=== PATIENT | male | born 1990 | race Caucasian/White ===

== ENCOUNTER 2017-11-24 11:02 | Emergency (ER) | payer OTHER ==
[2017-11-24 11:18] VITALS: BP 148/95
--- NOTE | 2017-11-24 12:52 | UC ---
Cardiac HPI - HPI Summary HPI Summary: PATIENT PRESENTS WITH 2 DAYS OF OVERALL MALAISE. HAS HAD NAUSEA, CHILLS, ACHINESS, HEADACHE, DIZZINESS AND SUBJECTIVE FEVER. YESTERDAY HE THOUGHT HE WAS FEELING A LITTLE BIT BETTER SO TRIED TO EAT A LITTLE SOMETHING AND THEN DEVELOPED WHAT HE DESCRIBES SEVERE HEARTBURN. PATIENT WILL AT BASELINE OCCASIONALLY HAVE SOME MILD HEARTBURN THAT RESOLVES WITH ONE TUMS. PATIENT TOOK TUMS MULTIPLE TIMES OVER THE COURSE OF A FEW HOURS LAST NIGHT WITH NO IMPROVEMENT IN HIS SYMPTOMS. TODAY HE STILL HAS SOME EPIGASTRIC MIDSTERNAL BURNING/TIGHTNESS AND PERSISTENT NAUSEA. YESTERDAY HE HAD SOME SHORTNESS OF BREATH. - History of Current Complaint Chief Complaint: UCGeneralIllness Stated Complaint: HEADACHE,LIGHTHEADED,HEARTBURN Time Seen by Provider: 11/24/17 12:21 Hx Obtained From: Patient, Family/Purification Supervisor - Onset/Duration: Gradual Onset, Lasting Days, Still Present Timing: Constant Initial Severity: Moderate Current Severity: Moderate Pain Intensity: 5 Character: Tightness, Burning Aggravating Factor(s): Nothing Alleviating Factor(s): Nothing Associated Signs & Symptoms: Positive: Chest Pain, Dizziness, SOB, Nausea/ Vomiting - Allergy/Home Medications Allergies/Adverse Reactions: Allergies Allergy/AdvReac Type Severity Reaction Status Date / Time No Known Allergies Allergy Verified 11/24/17 11:14 Home Medications: Home Medications Calcium Carbonate CHEW TAB* [Tums*] 1 tab PO Q6HR PRN 11/24/17 [History Confirmed 11/24/17] PMH/Surg Hx/FS Hx/Imm Hx Endocrine History: Dyslipidemia - Surgical History Surgical History: None Surgery Procedure, Year, and Place: NONE PERTINENT - Family History Known Family History: Positive: Cardiac Disease, Hypertension - Social History Alcohol Use: Weekly Alcohol Amount: 1-2 drinks weekly Substance Use Type: None Smoking Status (MU): Never Smoked Tobacco Review of Systems Constitutional: Fever, Chills, Fatigue Respiratory: Shortness Of Breath Cardiovascular: Chest Pain Gastrointestinal: Vomiting, Nausea All Other Systems Reviewed And Are Negative: Yes Physical Exam Triage Information Reviewed: Yes Appearance: No Pain Distress, Well-Nourished, Ill-Appearing - MILD, LOOKS PALE Vital Signs: Initial Vital Signs Temp 97.9 F 11/24/17 11:15 Pulse 81 11/24/17 11:15 Resp 16 11/24/17 11:15 BP 148/95 04/24/18 11:15 Pulse Ox 99 11/24/17 11:15 Vital Signs Reviewed: Yes Eyes: Positive: Conjunctiva Clear ENT: Positive: Hearing grossly normal Neck: Positive: Supple, Nontender, No Lymphadenopathy Respiratory Exam: Normal Cardiovascular Exam: Normal Abdomen Description: Positive: Nontender, Soft Musculoskeletal: Positive: No Edema Neurological: Positive: Alert Psychological: Positive: Normal Response To Family, Age Appropriate Behavior Skin: Negative: rashes Diagnostics - Laboratory Diagnostic Studies Completed/Ordered: FLU NEG - EKG Cardiac Rate: NL - 72BPM Cardiac Rhythm: Sinus: Normal Ectopy: None ST Segment: Normal - Assessment/Plan Course Of Treatment: TO [facility] [place] ED BY PRIVATE CAR - Clinical Impression Provider Diagnoses: CHEST PAIN, NOS Discharge - Sign-Out/Discharge Documenting (check all that apply): Discharge/Admit/Transfer - Discharge Plan Condition: Stable Disposition: HOME Patient Education Materials: Chest Pain (ED) Referrals: No Primary Care Phys,NOPCP [Primary Care Provider] - Additional Instructions: GIVEN YOUR PRESENTATION, TRANSFER TO THE [facility] – [place] [place] ED FOR FURTHER EVALUATION IS WARRANTED. GO DIRECTLY THERE FROM HERE. - Billing Disposition and Condition Condition: STABLE Disposition: HOME
== END 2017-11-24 13:06 | disposition home or self-care (01) ==
LOC: UCEAST 11:02
DX: R07.9 Chest pain, unspecified (principal)
CPT/HCPCS: 87502; 93005; 99202; G0463

== ENCOUNTER 2017-11-24 13:31 | Emergency (ER) | payer OTHER ==
[2017-11-24] MEDS ORDERED: Al Hydrox/Mg Hydrox/Simet LIQ* 30 ML UDC PO ONE (14:12)
[2017-11-24] MEDS ORDERED: Famotidine IV* 10 MG/ML 2 ML (20 mg) IV ONE (14:12)
[2017-11-24] MEDS ORDERED: NS 0.9% 1000 ML* 1,000 ML IV ONE (14:12)
[2017-11-24] MEDS ORDERED: Ondansetron INJ* 2 MG/ML VIAL IV ONE (14:14)
[2017-11-24 14:38] LABS: ABS Basophils 0 10^3/ul (0-0.2); ABS Eosinophils 0.2 10^3/ul (0-0.6); ABS Lymphocytes 2.4 10^3/ul (1.0-4.8); ABS Monocytes 1.3 10^3/ul (0-0.8); ABS Neutrophils 6.9 10^3/ul (1.5-7.7); ABS Nucleated RBC 0 10^3/ul; Eosinophil % 1.4 % (0-6); Hematocrit 46 % (42-52); Hemoglobin 15.7 g/dl (14.0-18.0); Lymphocyte % 21.9 % (25-47); Mean Corpuscular HGB Conc 34 g/dl (31-36); Mean Corpuscular Hemoglobin 30 pg (27-31); Mean Corpuscular Volume 86 fL (80-94); Nucleated Red Blood Cells % 0; Platelet Count 295 10^3/ul (150-450); Red Blood Count 5.32 10^6/ul (4.0-5.4); Red Cell Distribution Width 13 % (10.5-15); White Blood Count 10.8 10^3/ul (3.5-10.8)
[2017-11-24] MEDS ORDERED: Ondansetron ODT TAB* 4 MG SL ONE (14:44)
[2017-11-24] MEDS ORDERED: Ondansetron ODT TAB* 4 MG ONE (14:45)
[2017-11-24 14:56] LABS: EGFR Non-African American 67.4 (>60)
[2017-11-24 15:15] LABS: Urine Appearance Clear; Urine Blood 1+ (Negative); Urine Color Yellow; Urine Ketones Negative (Negative); Urine Protein Negative (Negative); Urine Specific Gravity 1.031 (1.010-1.030); Urine Urobilinogen Negative (Negative)
[2017-11-24 15:23] VITALS: BP 130/72
--- NOTE | 2017-12-03 05:53 | ED ---
Nausea/Vomiting/Diarrhea HPI - HPI Summary HPI Summary: Patient is an otherwise healthy 27-year-old male who presents to the ED with chief complaint of epigastric pain which has been present 3 days. He was sent here from urgent care for further evaluation of his symptoms. Denies any chest pain. Patient endorses nausea and vomiting which ceased yesterday. Denies any diarrhea or constipation. Symptoms are worse with lying flat and better with sitting upright. He states he had some food poisoning 3 days ago and has been having nausea and vomiting 2 days. Symptoms began after the nausea and vomiting. He endorses a burning-like sensation. Endorses a family history of cardiac issues including CAD and hypertension. Denies any personal cardiac issues. He states symptoms improved drastically with Tums and are worsened with eating. Denies any abdominal pain otherwise. Denies any fevers, sweats, chills. He has been otherwise feeling well. Patient is a nonsmoker and denies taking any NSAIDs recently. - History of Current Complaint Chief Complaint: EDNauseaVomitDiarrh Stated Complaint: N/V THURSDAY- TRANSFER Time Seen by Provider: 11/24/17 14:08 Hx Obtained From: Patient Onset/Duration: Sudden Onset Timing: Constant Severity Initially: Mild Severity Currently: Mild Pain Intensity: 0 Pain Scale Used: 0-10 Numeric Location: Epigastric Character: Burning Aggravating Factor(s): Food Alleviating Factor(s): Position Nausea/Vomiting Presence: Nauseated Vomiting Frequency: Every 3-4 hours Nausea/Vomiting Duration: 12-24 hours Vomiting Characteristics: Nonbilious Diarrhea Presence: No - Risk Factors Influenza Risk Factors: Negative Surgical Obstruction Risk Factor(s): Negative - Allergies/Home Medications Allergies/Adverse Reactions: Allergies Allergy/AdvReac Type Severity Reaction Status Date / Time No Known Allergies Allergy Verified 11/24/17 13:38 PMH/Surg Hx/FS Hx/Imm Hx Previously Healthy: Yes Endocrine/Hematology History: Denies: Hx Diabetes Cardiovascular History: Denies: Hx Congestive Heart Failure, Other Cardiovascular Problems/Disorders - DENIES Respiratory History: Denies: Other Respiratory Problems/Disorders - DENIES History: Denies: Hx Renal Disease - Surgical History Surgery Procedure, Year, and Place: NONE PERTINENT - Immunization History Hx Pertussis Vaccination: No Immunizations Up to Date: Unable to Obtain/Confirm Infectious Disease History: No Infectious Disease History: Denies: Traveled Outside the [place] in Last 30 Days - Family History Known Family History: Positive: Cardiac Disease, Hypertension - Social History Occupation: Employed Full-time Lives: With Family Alcohol Use: Weekly Alcohol Amount: 1-2 drinks weekly Hx Substance Use: No Substance Use Type: Reports: None Hx Tobacco Use: No Smoking Status (MU): Never Smoked Tobacco Review of Systems Constitutional: Negative Negative: Fever, Chills, Fatigue, Skin Diaphoresis Eyes: Negative Cardiovascular: Negative Respiratory: Negative Positive: Abdominal Pain - epigastric Genitourinary: Negative Positive: no symptoms reported, see HPI Musculoskeletal: Negative Neurological: Negative Psychological: Normal All Other Systems Reviewed And Are Negative: Yes Physical Exam Triage Information Reviewed: Yes Vital Signs On Initial Exam: Initial Vitals Temp Pulse Resp BP Pulse Ox 98.5 F 73 16 148/76 97 11/24/17 13:33 11/24/17 13:33 11/24/17 13:33 11/24/17 13:33 11/24/17 13:33 Vital Signs Reviewed: Yes Appearance: Positive: Well-Appearing, Well-Nourished Skin: Positive: Warm, Skin Color Reflects Adequate Perfusion Head/Face: Positive: Normal Head/Face Inspection Eyes: Positive: EOMI, LATONYA, Conjunctiva Clear Neck: Positive: Supple Respiratory/Lung Sounds: Positive: Clear to Auscultation, Breath Sounds Present Cardiovascular: Positive: Normal, RRR, Pulses are Symmetrical in both Upper and Lower Extremities Abdomen Description: Positive: Soft, Other: - pain to deep palpation of the epigastric region with no pain to the other quadrants Neurological: Positive: Normal, Sensory/Motor Intact, Alert, Oriented to Person Place, Time Psychiatric: Positive: Normal, Affect/Mood Appropriate AVPU Assessment: Alert Diagnostics - Vital Signs Vital Signs Temp Pulse Resp BP Pulse Ox 11/24/17 15:27 97.8 F 80 16 130/72 99 11/24/17 15:16 73 130/72 11/24/17 15:00 74 95 11/24/17 14:44 80 116/92 96 11/24/17 14:14 80 119/74 96 11/24/17 14:12 83 11/24/17 13:33 98.5 F 73 16 148/76 97 - Laboratory Lab Results: Lab Results 11/24/17 11/24/17 11/24/17 Range/Units 14:25 14:25 14:41 WBC 10.8 (3.5-10.8) 10^3/ul RBC 5.32 (4.0-5.4) 10^6/ul Hgb 15.7 (14.0-18.0) g/dl Hct 46 (42-52) % MCV 86 (80-94) fL MCH 30 (27-31) pg MCHC 34 (31-36) g/dl RDW 13 (10.5-15) % Plt Count 295 (150-450) 10^3/ul MPV 8.0 (7.4-10.4) um3 Neut % (Auto) 63.9 (38-83) % Lymph % (Auto) 21.9 L (25-47) % Nolan % (Auto) 12.4 H (0-7) % Eos % (Auto) 1.4 (0-6) % Baso % (Auto) 0.4 (0-2) % Absolute Neuts (auto) 6.9 (1.5-7.7) 10^3/ul Absolute Lymphs (auto) 2.4 (1.0-4.8) 10^3/ul Absolute Monos (auto) 1.3 H (0-0.8) 10^3/ul Absolute Eos (auto) 0.2 (0-0.6) 10^3/ul Absolute Basos (auto) 0 (0-0.2) 10^3/ul Absolute Nucleated RBC 0 10^3/ul Nucleated RBC % 0 Sodium 138 L (139-145) mmol/L Potassium TNP Chloride 104 (101-111) mmol/L Carbon Dioxide 25 (22-32) mmol/L Anion Gap 9 (2-11) mmol/L BUN 15 (6-24) mg/dL Creatinine 1.28 H (0.67-1.17) mg/dL Est GFR ( Amer) 86.7 (>60) Est GFR (Non-Af Amer) 67.4 (>60) BUN/Creatinine Ratio 11.7 (8-20) Glucose 87 (70-100) mg/dL Calcium 9.5 (8.6-10.3) mg/dL Magnesium TNP Total Bilirubin 0.50 (0.2-1.0) mg/dL AST TNP ALT 59 H (7-52) U/L Alkaline Phosphatase 54 (34-104) U/L Total Protein 7.9 (6.4-8.9) g/dL Albumin 4.2 (3.2-5.2) g/dL Globulin 3.7 (2-4) g/dL Albumin/Globulin Ratio 1.1 (1-3) Lipase 33 (11.0-82.0) U/L Urine Color Yellow Urine Appearance Clear Urine pH 5.0 (5-9) Ur Specific [place] 1.031 H (1.010-1.030) Urine Protein Negative (Negative) Urine Ketones Negative (Negative) Urine Blood 1+ A (Negative) Urine Nitrate Negative (Negative) Urine Bilirubin Negative (Negative) Urine Urobilinogen Negative (Negative) Ur Leukocyte Esterase Negative (Negative) Urine WBC (Auto) Trace(0-5/hpf) (Absent) Urine RBC (Auto) 2+(6-10/hpf) A (Absent) Urine Bacteria Absent (Absent) Hyaline Casts Present A (Absent) Urine Glucose Negative (Negative) Result Diagrams: 11/24/17 14:25 11/24/17 14:25 Lab Statement: Any lab studies that have been ordered have been reviewed, and results considered in the medical decision making process. Naus/Vom/Diarrhea Course/Dx - Course Course Of Treatment: During the course of treatment, the patient is evaluated for epigastric pain. On arrival he states he is feeling well but endorses pain with eating and lying flat. The pain is discretely located to the epigastric region with no radiation. Denies any chest pain or shortness of breath. Denies any diaphoresis. Denies any fevers or chills. He states he believes this is epigastric pain due to his bouts of nausea and vomiting a few days ago from food poisoning. I have offered an IV and he declines at this time. I given him Zofran and Maalox with full symptoms relief. He is strictly encouraged to return for any chest pain, shortness of breath or any worsening symptoms. I have given him prescriptions for omeprazole and Zofran and he is encouraged Maalox at home for any breakthrough epigastric pain. - Differential Dx/Diagnosis Provider Diagnoses: Epigastric pain Condition At Discharge: Stable Discharge - Sign-Out/Discharge Documenting (check all that apply): Discharge/Admit/Transfer - Discharge Plan Condition: Stable Disposition: HOME Prescriptions: Omeprazole 40 mg PO DAILY #30 capsule. Ondansetron ODT TAB* [Zofran 4 MG Odt TAB*] 4 mg PO Q6H PRN #12 tab.odt MDD 4 PRN Reason: Nausea Patient Education Materials: Gastritis (DC), Diet for Stomach Ulcers and Gastritis (ED), Epigastric Pain (ED) Forms: *Work Release Referrals: Amilcar Aguilar MD [Primary Care Provider] - Additional Instructions: Omeprazole 40 mg tabs once daily in the morning 30 days Zofran up to 4 times daily as needed for nausea/vomiting Maalox, this is [id number] for any breakthrough epigastric symptoms For any worsening or changing symptoms, return to the ED immediately - Billing Disposition and Condition Condition: STABLE Disposition: HOME
== END 2017-11-24 15:27 | disposition home or self-care (01) ==
LOC: ED 13:31
DX: R10.13 Epigastric pain (principal)
CPT/HCPCS: 36415; 80053; 81003; 81015; 83690; 85025; 87086; 96374; 96375; 99282; A9270-GY

== ENCOUNTER 2018-06-12 13:48 | Emergency (ER) | payer OTHER ==
--- OUTSIDE RECORDS SUMMARY | 2018-06-12 13:54 | XMS REPORT ---
:1990 External Reference #:[id number] Author Organization [facility] Address [address] [place] [address] Phone [phone] Care Team Providers Name Role Phone Cuong Clemente MD Care Team Information Rn Private Duty Unavailable Cuong Clemente MD Primary Care Physician Unavailable Payers Type Date Identification Numbers Payment Provider Subscriber Commercial Policy Number: [id number] Skyler Reema Umaña PayID: [id number] [address] [place] [address] Problems Date Description Provider Status Onset: 03/07/2013 Mild major depression, single episode Mike Beard M.D. Active Onset: 09/15/2011 Acute upper respiratory infection Dejan Callahan M.D. 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 [place] Cigarette Use Former Cigarette Smoker quit 2011 ETOH Use Some not daily - in social situations 1-3 beers per week Recreational Drug Use Denies Drug Use Smoking Patient is a former smoker Daily Caffeine Consumes on average 1 cup of coffee per day Daily Caffeine Consumes on average 1 soda per day Currently Active The patient is currently sexually active Allergies, Adverse Reactions, Alerts Date Description Reaction Status Severity Comments 03/11/2010 NKDA active Medications Medication Date Status Form Strength Qnty SIG Indications Ordering Provider No Active Active Unknown Medications 018 No Active Hx Unknown Medications 013 - 013 Escitalopram Hx Tablets 10mg 30tabs 1/2 po qd Mike F. Oxalate 013 - [facility] ,then to M.D. 014 increase to 1 po qd Escitalopram Hx Tablets 10mg 30tabs 1 po qd Mike F. Oxalate 013 - [facility], M.DTami 018 Amoxicillin/Cla Hx Tablets 500-125mg 20tabs 1 po bid 465.9 Wylie ATami vulanate 012 - [place], Potassium M.Alvino 012 Clarinex Hx Tablets 5mg 30tabs 1 po qd Dejan Isaac 011 - [place], M.Alvino 012 Work Note Hx may return Amilcar Reese - to work Lauren, today Bubba 012 Risperidone 0000/0 Hx Tablets 1mg 1 po qhs Unknown 000 - 011 Zoloft /0 Hx Tablets 50mg 30tabs 1 po qd Amilcar Isaac 000 - [place], M.Alvino 013 Vicodin 00/0 Hx Tablets 5-500mg 40tabs 2 po every Unknown 000 - six hours prn 011 Augmentin 0000/0 Hx Tablets 20tabs one tab po Unknown 000 - bid 011 Septra DS /0 Hx Tablets 800-160mg 20tabs 1 po bid Unknown 000 - 018 Medications Administered in Office Medication Date Status Form Strength Qnty SIG Indications Ordering Provider Influenza Virus Administered Injection Ann Michelle Vaccine, 018 Shane, Recombinant JAVA SDET Dna, Hemagglutnin Protein On Immunizations CPT Code Status Date Vaccine Reaction Lot # [id number] Given 05/09/2008 Influenza Virus Vaccine, Live For Intranasla Use 29509 Given 05/01/2008 Hep A Ped 2-Dose Immunization 17539 Given 05/31/2007 Influenza Virus Vaccine, Live For Intranasla Use 76818 Given 06/05/2006 Influenza Virus Vaccine, Live For Intranasla Use 31617 Given 12/31/2004 Meningococcal Conjugate Vaccine,Serogroups For Intramuscular Use 26176 Given 12/31/2004 Tdap Tetanus, W Pertussis 62658 Given 03/15/1999 Hepatitis B Immunization, [place]-19 Years 71262 Given 03/29/1998 Hepatitis B Immunization, -19 Years 09767 Given 03/10/1997 Hepatitis B Immunization, [place]-19 Years 52215 Given 02/15/1996 (IPV) Inactive Poliovirus Vaccine 11382 Given 02/15/1996 MMR Virus Immunization 55653 Given 02/15/1996 DTaP Immunization 54673 Given 06/03/1992 Varicella (Chicken Pox) Immunization had disease 06814 Given 04/19/1992 (IPV) Inactive Poliovirus Vaccine [id number] 97239 Given 01/18/1992 MMR Virus Immunization 67047 Given 01/18/1992 Hib PRP-T Conjugate 4 Dose Schedule 24514 Given 03/28/1991 DTaP Immunization 39375 Given 03/28/1991 Hib PRP-T Conjugate 4 Dose Schedule 66089 Given 01/19/1991 (IPV) Inactive Poliovirus Vaccine 15239 Given 01/19/1991 Hib PRP-T Conjugate 4 Dose Schedule 82818 Given 01/16/1991 DTaP Immunization 87291 Given 1990 Hib PRP-T Conjugate 4 Dose Schedule 42488 Given 1990 (IPV) Inactive Poliovirus Vaccine 23493 Given 1990 DTaP Immunization Vital Signs Date Vital Result Comment 06/01/2018 BP Systolic 120 mmHg BP Diastolic 80 mmHg Heart Rate 72 /min Body Temperature 98.4 F Respiratory Rate 16 /min Height 72 inches 6'0" Weight 288.00 lb BMI (Body Mass Index) 39.1 kg/m2 04/09/2013 BP Systolic 120 mmHg BP Diastolic 70 mmHg Heart Rate 80 /min Body Temperature 98.1 F Respiratory Rate 16 /min Height 72 inches 6'0" Weight 252.00 lb BMI (Body Mass Index) 34.2 kg/m2 03/21/2013 BP Systolic 110 mmHg BP Diastolic 74 mmHg Heart Rate 60 /min Body Temperature 97.8 F Respiratory Rate 14 /min Height 72 inches 6'0" Weight 255.00 lb BMI (Body Mass Index) 34.6 kg/m2 03/07/2013 BP Systolic 126 mmHg BP Diastolic 92 mmHg Heart Rate 72 /min Body Temperature 97.3 F Respiratory Rate 16 /min Height 72 inches 6'0" Weight 265.00 lb BMI (Body Mass Index) 35.9 kg/m2 07/22/2012 BP Systolic 130 mmHg BP Diastolic 84 mmHg Heart Rate 84 /min Body Temperature 98.2 F Respiratory Rate 16 /min Height 72 inches 6'0" Weight 273.00 lb BMI (Body Mass Index) 37.0 kg/m2 11/07/2011 BP Systolic 110 mmHg BP Diastolic 60 mmHg Heart Rate 80 /min Body Temperature 98.9 F Height 71.75 inches 5'11.75" Weight 268.00 lb BMI (Body Mass Index) 36.6 kg/m2 09/15/2011 BP Systolic 114 mmHg BP Diastolic 84 mmHg Heart Rate 71 /min Body Temperature 98.2 F Height 71.75 inches 5'11.75" Weight 263.00 lb BMI (Body Mass Index) 35.9 kg/m2 06/02/2011 BP Systolic 130 mmHg BP Diastolic 90 mmHg Heart Rate 78 /min Body Temperature 97.5 F Height 71.75 inches 5'11.75" Weight 264.00 lb BMI (Body Mass Index) 36.1 kg/m2 01/10/2011 BP Systolic 120 mmHg BP Diastolic 72 mmHg Heart Rate 80 /min Body Temperature 97.2 F Respiratory Rate 16 /min Height 71.75 inches 5'11.75" Weight 254.00 lb BMI (Body Mass Index) 34.7 kg/m2 01/07/2011 BP Systolic 120 mmHg BP Diastolic 80 mmHg Heart Rate 68 /min Body Temperature 98.2 F Height 71.75 inches 5'11.75" Weight 247.00 lb BMI (Body Mass Index) 33.7 kg/m2 10/28/2010 BP Systolic 130 mmHg BP Diastolic 82 mmHg Heart Rate 76 /min Body Temperature 98.1 F Respiratory Rate 16 /min Height 71.75 inches 5'11.75" Weight 236.00 lb BMI (Body Mass Index) 32.2 kg/m2 10/07/2010 BP Systolic 130 mmHg BP Diastolic 70 mmHg Heart Rate 84 /min Body Temperature 98.6 F Respiratory Rate 12 /min Height 71.75 inches 5'11.75" Weight 228.00 lb BMI (Body Mass Index) 31.1 kg/m2 03/11/2010 BP Systolic 120 mmHg BP Diastolic 70 mmHg Heart Rate 76 /min Body Temperature 98.0 F Respiratory Rate 16 /min Height 71.75 inches 5'11.75" Weight 230.00 lb BMI (Body Mass Index) 31.4 kg/m2 Results Test Date Test Result H/L Range Note Urinalysis Profile 11/24/2017 Urine Color Yellow Urine Appearance Clear Urine Specific [place] 1.031 High 1.010-1.030 Urine pH 5.0 5-9 Urine Urobilinogen Negative Negative Urine Ketones Negative Negative Urine Protein Negative Negative Urine Leukocytes Negative Negative Urine Blood 1+ Negative Urine Nitrite Negative Negative Urine Bilirubin Negative Negative Urine Glucose Negative Negative Urine White Blood Cell Trace(0-5/hpf) Absent Urine Red Blood Cell 2+(6-10/hpf) Absent Urine Bacteria Absent Absent Urine Hyaline Casts Present Absent Urine Culture And 11/24/2017 Urine Culture SEE RESULT BELOW 1 Sensitivities CBC Auto Diff 11/24/2017 White Blood Count 10.8 10^3/uL 3.5-10.8 Red Blood Count 5.32 10^6/uL 4.0-5.4 Hemoglobin 15.7 g/dL 14.0-18.0 Hematocrit 46 % 42-52 Mean Corpuscular Volume 86 fL 80-94 Mean Corpuscular Hemoglobin 30 pg 27-31 Mean Corpuscular HGB Conc 34 g/dL 31-36 Red Cell Distribution Width 13 % 10.5-15 Platelet Count 295 10^3/uL 150-450 Mean Platelet Volume 8.0 um3 7.4-10.4 Abs Neutrophils 6.9 10^3/uL 1.5-7.7 Abs Lymphocytes 2.4 10^3/uL 1.0-4.8 Abs Monocytes 1.3 10^3/uL High 0-0.8 Abs Eosinophils 0.2 10^3/uL 0-0.6 Abs Basophils 0 10^3/uL 0-0.2 Abs Nucleated RBC 0 10^3/uL Granulocyte % 63.9 % 38-83 Lymphocyte % 21.9 % Low 25-47 Monocyte % 12.4 % High 0-7 Eosinophil % 1.4 % 0-6 Basophil % 0.4 % 0-2 Nucleated Red Blood Cells % 0 Comp Metabolic Panel 11/24/2017 Sodium 138 mmol/L Low 139-145 Chloride 104 mmol/L 101-111 Co2 Carbon Dioxide 25 mmol/L 22-32 Glucose 87 mg/dL 70-100 Blood Urea Nitrogen 15 mg/dL 6-24 Creatinine 1.28 mg/dL High 0.67-1.17 BUN/Creatinine Ratio 11.7 8-20 Calcium 9.5 mg/dL 8.6-10.3 Total Protein 7.9 g/dL 6.4-8.9 Albumin 4.2 g/dL 3.2-5.2 Globulin 3.7 g/dL 2-4 Albumin/Globulin Ratio 1.1 1-3 Total Bilirubin 0.50 mg/dL 0.2-1.0 Alkaline Phosphatase 54 U/L 34-104 Alt 59 U/L High 7-52 Egfr Non- 67.4 >60 Egfr 86.7 >60 2 Potassium TNP mmol/L 3.5-5.0 3 Anion Gap 9 mmol/L 2-11 Ast TNP U/L 13-39 4 Laboratory test finding 11/24/2017 Lipase 33 U/L 11.0-82.0 Magnesium TNP mg/dL 1.9-2.7 5 Lipid Profile 03/21/2013 Cholesterol 185 mg/dL 120-200 HDL 28 mg/dL Low 30-70 6 Triglycerides 94 mg/dL 30-200 HDL Risk Factor 6.6 CALC High 0.0-4.4 LDL (Calculated) 138 CALC High 0-129 VLDL (Calculated) 19 mg/dL 0-50 Urinalysis 03/03/2013 Urine Color Yellow Urine Appearance Clear Urine Specific [place] 1.031 High 1.010-1.030 Urine Esterase Negative Negative Urine Nitrate Negative Negative Urine Urobilinogen Negative E.U./dL Negative Urine Protein Negative mg/dL Negative Urine pH 8.0 5-9 Urine Blood Negative Negative Urine Ketones Negative mg/dL Negative Urine Bilirubin Negative Negative Urine Glucose Negative mg/dL Negative CBC Auto Diff 03/03/2013 White Blood Count 10.1 10^3/uL 4.8-10.8 Red Blood Count 4.95 10^6/uL 4.0-5.4 Hemoglobin 14.7 g/dL 14.0-18.0 Hematocrit 43 % 42-52 Mean Corpuscular Volume 87 fL 80-94 Mean Corpuscular Hemoglobin 30 pg 27-31 Mean Corpuscular HGB Conc 34 g/dL 31-36 Red Cell Distribution Width 13 % 10.5-15 Platelet Count 269 10^3/uL 150-450 Mean Platelet Volume 9 um3 7.4-10.4 Abs Neutrophils 6.2 10^3/uL 1.5-7.7 Abs Lymphocytes 2.9 10^3/uL 1.0-4.8 Abs Monocytes 0.9 10^3/uL High 0-0.8 Abs Eosinophils 0.1 10^3/uL 0-0.6 Abs Basophils 0.1 10^3/uL 0-0.2 Abs Nucleated RBC 0.01 10^3/uL Granulocyte % 60.9 % 38-83 Lymphocyte % 28.2 % 25-47 Monocyte % 9.0 % 1-9 Eosinophil % 1.1 % 0-6 Basophil % 0.8 % 0-2 Nucleated Red Blood Cells % 0 Comp Metabolic Panel 03/03/2013 Sodium 135 mmol/L 133-145 Potassium 3.7 mmol/L 3.5-5.0 Chloride 106 mmol/L 101-111 Co2 Carbon Dioxide 23.0 mmol/L 22-32 Anion Gap 6.0 mmol/L 2-11 Glucose 89 mg/dL 70-100 Blood Urea Nitrogen 17 mg/dL 6-24 Creatinine 1.00 mg/dL 0.50-1.40 BUN/Creatinine Ratio 17.0 8-20 Calcium 9.4 mg/dL 8.1-9.9 Total Protein 7.4 g/dL 6.2-8.1 Albumin 3.9 g/dL 3.6-5.4 Globulin 3.5 g/dL 2-4 Albumin/Globulin Ratio 1.1 1-3 Total Bilirubin 0.7 mg/dL 0.4-1.5 Alkaline Phosphatase 51 U/L 30-110 Alt 32 U/L 14-54 Ast 28 U/L 12-42 Egfr Non- 93.4 >60 Egfr 120.2 >60 7 Laboratory test finding 03/03/2013 Creatine Kinase 227 U/L High 0-200 Troponin I 0 ng/mL 0-0.06 8 D Dimer Quantitative 263 ng/mL High Less Than 230 9 Lipase 44 U/L 22-51 Ua - Non Micro (Fma) 07/22/2012 Appearance clear Color yellow Glucose, Urine (Fma/CMC/CTX) neg Bilirubin neg Ketones neg SP Grav 1.020 Blood neg PH 6.5 Protein neg Urobil 0.2 Nitrite neg Leukocytes (Fma/CMC/Centrex) neg Manual Differential 11/07/2011 Polysegmented Neutrophil 63 % 38-83 Lymphocyte 21 % Low 25-47 Monocyte 8 % 0-13 Eosinophil 3 % 0-6 Atypical Lymph 5 % 0-6 Absolute Neutrophil Count 7.1 Anisocytosis SLIGHT CBC Auto Diff 11/07/2011 White Blood Count 11.4 CUMM High 4.8-10.8 Red Cell Count 4.91 CUMM 4.6-6.2 Hemoglobin 15.4 g/dL 14.0-18.0 Hematocrit 43 % 42-52 Mean Corpuscular Volume 87 um3 80-94 Mean Corpuscular Hemoglob 32 pg High 27-31 Mean Corpuscular HGB Cone 36 g/dL 32-36 Redcell Distribution WDTH 13 % 10.5-15 Platelet Count 262 CUMM 150-450 Mean Platelet Volume 8.3 um3 7.4-10.4 10 Urinalysis 11/07/2011 Ua Color YELLOW Yellow Appearance-Urine CLEAR Clear Specific [place]-Ur 1.023 1.010-1.030 Esterase-Urine NEGATIVE Negative Nitrite NEGATIVE Negative Uhvdlksmayun-By-PDV NEGATIVE Negative Protein-Urine NEGATIVE Negative PH-Urine 5.0 5-9 Blood-Urine NEGATIVE Negative Ketones-Urine NEGATIVE Negative Bilirubin-Ur NEGATIVE Negative Glucose-Urine NEGATIVE Negative Laboratory test finding 11/07/2011 Lipase 46 U/L 22-51 Comp Metabolic Panel 11/07/2011 Sodium 140 mmol/L 135-145 Potassium 3.9 mmol/L 3.5-5.0 Chloride 106 mmol/L 101-111 Co2 (Carbon Dioxide) 28.0 mmol/L 22-32 Anion Gap 6.0 mmol/L 2-11 11 Glucose 90 mg/dL 70-100 BUN 14 mg/dL 6-24 Creatinine 1.2 mg/dL 0.50-1.40 One Over Creatinine 0.83 BUN/Creatinine Ratio 11.7 8-20 Calcium 8.8 mg/dL 8.1-9.9 Total Protein 7.6 GM/DL 6.2-8.1 Albumin 4.1 GM/DL 3.6-5.4 Globulin 3.5 GM/DL 2-4 Albumin/Globulin Ratio 1.2 1-3 Bilirubin Total 0.8 mg/dL 0.4-1.5 12 Alkaline Phosphatase 50 U/L 50-176 Alt (SGPT) 44 U/L 17-63 Ast (Sgot) 27 U/L 12-42 eGFR Non- 76.4 > 60 eGFR 98.3 > 60 13 Influenza A&B 09/15/2011 Influenza A neg Influenza B neg Culture And Sensitivity 01/05/2011 Gram Stain Smear MANY GRAM POSITI <SEE 14 NOTE> Laboratory test finding 01/05/2011 Culture Sensitivity STREPTOCOCCUS CO < SEE 15 NOTE> Sensitivities Wound 01/05/2011 Ampicillin 0.25 Culture Azithromycin <=0.25 Chloramphenicol 4 Ceftriaxone 0.5 Clindamycin <=0.06 Cefotaxime 0.5 Cefepime 1 Erythromycin <=0.06 Levofloxacin 0.5 Penicillin 0.12 Tetracylcline 1 Vancomycin 1 Hemogram 10/08/2010 White Blood Count 10.9 CUMM High 4.8-10.8 Red Cell Count 5.25 CUMM 4.6-6.2 Hemoglobin 16.0 g/dL 14.0-18.0 Hematocrit 46 % 42-52 Mean Corpuscular Volume 87 um3 80-94 Mean Corpuscular Hemoglob 31 pg 27-31 Mean Corpuscular HGB Cone 35 g/dL 32-36 Redcell Distribution WDTH 13 % 10.5-15 Platelet Count 282 CUMM 150-450 Mean Platelet Volume 7.9 um3 7.4-10.4 Urinalysis 10/08/2010 Ua Color YELLOW Yellow Appearance-Urine CLEAR Clear Specific [place]-Ur 1.022 1.010-1.030 Esterase-Urine NEGATIVE Negative Nitrite NEGATIVE Negative Svkjwqhbfwgt-Aa-OCU NEGATIVE Negative Protein-Urine NEGATIVE Negative PH-Urine 6.5 5-9 Blood-Urine NEGATIVE Negative Ketones-Urine NEGATIVE Negative Bilirubin-Ur NEGATIVE Negative Glucose-Urine NEGATIVE Negative Urine Drug SCR ED & 10/08/2010 Amphetamines Urine NONE DETECTED None Detect Pain Clinic Screen Barbituates Urine Screen NONE DETECTED None Detect Benzodiazepine Ur Screen NONE DETECTED None Detect Cannabinoid Urine Screen NONE DETECTED None Detect Cocaine Metabolites Urine NONE DETECTED None Detect Opiates Urine Screen NONE DETECTED None Detect PCP Urine Screen NONE DETECTED None Detect 16 Basic Metabolic Panel 10/08/2010 Sodium 139 mmol/L 135-145 Potassium 4.1 mmol/L 3.5-5.0 Chloride 104 mmol/L 101-111 Co2 (Carbon Dioxide) 25.0 mmol/L 22-32 Anion Gap 10.0 mmol/L 2-11 17 Glucose 113 mg/dL High 70-100 BUN 17 mg/dL 6-24 Creatinine 1.00 mg/dL 0.50-1.40 One Over Creatinine 1.00 BUN/Creatinine Ratio 17.0 8-20 Calcium 9.6 mg/dL 8.1-9.9 eGFR Non- 95.3 > 60 eGFR 122.5 > 60 18 Laboratory test finding 10/08/2010 Acetaminophen < 10 g/mL Low 10-30 19 Alcohol < 10.0 mg/dL None Detected 20 Salicylate < 4.0 mg/dL Less Than 30 21 TSH 0.98 MIU/ML 0.34-5.60 1 SEE RESULT BELOW Name: REEMA UMAÑA : [address]: Tyler Bocanegra MD Acct: [id number] Unit: [id number] AGE: 27 Location: ED Re11/24/17 SEX: M Status: DEP ER SPEC: [id number] [place]: 11/24/17-[address] [facility] [address]: Estelle GIFFORD REQ: [id number] RECD: 11/24/17329 STATUS: DAVINA ALMAZAN DR: Tyler Aguilar MD _ SOURCE: URINE SPDESC: ORDERED: Urine Culture Procedure Result Reported Site Urine Culture Final 11/25/17- 1238 ML No Growth (<1,000 CFU/mL) * ML - Main Lab . END OF REPORT DEPARTMENT OF PATHOLOGY, [address] [place] [address] Angus Guerrero M.D. Director [facility] # [id number] 2 Because ethnic data is not always readily available, this report includes an eGFR for both -Americans and non- Americans. The National Kidney Disease Education Program (NKDEP) does not endorse the use of the MDRD equation for patients that are not between the ages of 18 and 70, are , have extremes of body size, muscle mass, or nutritional status, or are non- or non-. According to the National Kidney Foundation, irrespective of diagnosis, the stage of the disease is based on the level of kidney function: Stage Description GFR(mL/min/1.73 m(2)) 1 Kidney damage with normal or decreased GFR 90 2 Kidney damage with mild decrease in GFR 60-89 3 Moderate decrease in GFR 30-59 4 Severe decrease in GFR 15-29 5 Kidney failure <15 (or dialysis) 3 Specimen Hemolyzed. Result may not be valid. Unable to report test result due to hemolysis. 4 Unable to report test result due to hemolysis. 5 Unable to report test result due to hemolysis. 6 result [email or web address] 7 Because ethnic data is not always readily available, this report includes an eGFR for both -Americans and non- Americans. The National Kidney Disease Education Program (NKDEP) does not endorse the use of the MDRD equation for patients that are not between the ages of 18 and 70, are , have extremes of body size, muscle mass, or nutritional status, or are non- or non-. According to the National Kidney Foundation, irrespective of diagnosis, the stage of the disease is based on the level of kidney function: Stage Description GFR(mL/min/1.73 m(2)) 1 Kidney damage with normal or decreased GFR 90 2 Kidney damage with mild decrease in GFR 60-89 3 Moderate decrease in GFR 30-59 4 Severe decrease in GFR 15-29 5 Kidney failure <15 (or dialysis) 8 Reference Range and Interpretation: TnI (ng/mL) Interpretation Less Than 0.06 ng/mL Not supportive of diagnosis of NM 0.06 - 0.50 ng/mL Indeterminate: suggest serial studies if clinically indicated. Greater than 0.5 ng/mL Consistent with diagnosis of NM 9 Please note: The following may produce a false positive D Dimer test: - Rheumatoid factor greater than 60 IU/ml - Plasma hemoglobin greater than 0.05 gm/dl - Bilirubin greater than 50 mg/dl - Lipids greater than 1000 mg/dl - FDP greater than 20 ug/ml 10 H H Check Failed 11 Anion gap measurement may be of limited value in the presence of any alkalosis, especially in a combined acid base disorder. . 12 A metabolite of Naproxen, O-desmethylnaproxen, has been shown to interfere with the Jendrassik-Haley method for measuring total bilirubin. Samples from patients who have taken Naproxen have shown spurious elevation in total bilirubin levels. 13 Because ethnic data is not always readily available, this report includes an eGFR for both -Americans and non- Americans. The National Kidney Disease Education Program (NKDEP) does not endorse the use of the MDRD equation for patients that are not between the ages of 18 and 70, are , have extremes of body size, muscle mass, or nutritional status, or are non- or non-. According to the National Kidney Foundation, irrespective of diagnosis, the stage of the disease is based on the level of kidney function: Stage Description GFR(mL/min/1.73 m(2)) 1 Kidney damage with normal or decreased GFR 90 2 Kidney damage with mild decrease in GFR 60-89 3 Moderate decrease in GFR 30-59 4 Severe decrease in GFR 15-29 5 Kidney failure <15 (or dialysis) 14 MANY GRAM POSITIVE COCCI ...IN CHAINS FEW SLENDER GRAM NEGATIVE BACILLI MANY 15 STREPTOCOCCUS CONSTELLATUS MOD^MODERATE^QTY 16 THE URINE SPECIMEN WAS TESTED AT THE LISTED CUTOFFS: DRUG CLASS TEST LEVEL (NG/ML) AMPHETAMINES 300 BARBITUATES 200 BENZODIAZEPINE METABOLITES 200 COCAINE METABOLITES 300 CANNABINOIDS 25 OPIATES 200 PCP 25 THIS IS A SCREENING PROCEDURE. POSITIVE RESULTS ARE NOT CONFIRMED. SPECIMEN WAS RECEIVED WITHOUT CHAIN OF CUSTODY. RESULTS SHOULD BE USED FOR MEDICAL PURPOSES ONLY. . 17 Anion gap measurement may be of limited value in the presence of any alkalosis, especially in a combined acid base disorder. . 18 Because ethnic data is not always readily available, this report includes an eGFR for both -Americans and non- Americans. The National Kidney Disease Education Program (NKDEP) does not endorse the use of the MDRD equation for patients that are not between the ages of 18 and 70, are , have extremes of body size, muscle mass, or nutritional status, or are non- or non-. According to the National Kidney Foundation, irrespective of diagnosis, the stage of the disease is based on the level of kidney function: Stage Description GFR(mL/min/1.73 m(2)) 1 Kidney damage with normal or decreased GFR 90 2 Kidney damage with mild decrease in GFR 60-89 3 Moderate decrease in GFR 30-59 4 Severe decrease in GFR 15-29 5 Kidney failure <15 (or dialysis) 19 TOXIC LEVELS: GREATER THAN 150 MCG/ML @ 4HR POST INGEST GREATER THAN 50 MCG/ML @ 12HR POST INGEST The detection limit for ACETAMINOPHEN is 10.0 mcg/ml . Values less than 10.0 mcg/ml cannot be accurately measured. . 20 The detection limit for ETHANOL is 10.0 mg/dl . Values less than 10.0 mg/dl cannot be accurately measured. . 21 The detection limit for SALICYLATE is 4.0 mg/dl. Values less than 4.0 mg/dl cannot be accurately measured. . Procedures Date CPT Code Description Status 03/07/2013 00396 Electrocardiogram Complete Completed Encounters Type Date Location Provider CPT E/M Dx Office Visit 04/09/2013 9:00a Main Office Kari KristieMirella 88165 685.0 Office Visit 03/21/2013 10:20a [facility] Office Mike Beard M.D. 67259 296.21 786.50 Office Visit 03/07/2013 9:40a [facility] Office Mike Beard M.D. 04511 296.21 786.50 Office Visit 07/22/2012 2:30p Main Office Amilcar Aguilar M.D. 89648 V70.0 V18.0 307.49 782.8 296.21 Office Visit 11/07/2011 3:20p [facility] Feli Mahan M.D. 26803 789.04 Office Visit 09/15/2011 9:40a [facility] Dejan Callahan M.D. 57764 465.9 Office Visit 06/02/2011 4:20p [facility] Melissa Valdez M.D. 54361 V58.32 Office Visit 01/10/2011 9:00a Main Office Cuong Ramachandran M.D. 26533 685.0 Office Visit 01/07/2011 2:30p [facility] Derrell Gatica-C 93418 685.0 V67.59 Office Visit 10/28/2010 10:00a [facility] Amilcar Aguilar M.D. 11080 296.90 Office Visit 10/07/2010 4:45p [facility] Office Amilcar Aguialr M.D. 26459 296.90 Office Visit 03/11/2010 8:00a [facility] Office Amilcar Aguilar M.D. 62393 296.21 Plan of Care 06/01/2018 - Ann Lynn, NPZ00.00 Encntr for general adult medical exam w/o abnormal findingsComments:Encourage an active and healthy lifestyle with proper eating habits including fruits, vegetables, 6-8 glasses of water a day and monitoring portion size. Recommend 30 minutes of daily physical activityincluding walking, aerobic exercise, sports, yoga or dance. Any activity is better than no activity.Recommend routine eye and dental exams. Encourage 1200 units of calcium and 1000 units of vitamin D daily. Next physical is due in 1-2 years.Z23 Encounter for immunizationComments:Your flu vaccination has been administered. This protects you for the fall, winter and spring. It will decrease the likelihood that you will get the flu. If you are unlucky and get the flu, the symptoms will be less severe.AllNew Medication:No Active MedicationsComments:~B_~U_Medication Management~b_~u_ Patient Understands medications he 's taking? Yes No Are there Barriers to Adherence? Yes No Has the patient been asked about herbal supplements and therapies, and OTC meds? Yes No ~B_~U_Care Plan~b_~u_1. Patient has been queried about patient's goals/preferences and functional/ lifestyle goals at relevant visits. If relevant, describe: na2. Treatment goals as explained to the patient: above3. Are there barriers to meeting treatment goals? Yes No If Yes, please describe:4. Self-Management goals as described to the patient:Yes NoAs always, we strongly encourage a healthy diet and making physical activity a part of your every day life. If you have questions about how or where to start, please contact the office.Follow up: Annual Due: 05/2019
[2018-06-12 14:04] VITALS: BP 134/65
--- NOTE | 2018-06-12 14:56 | UC ---
Complaint Male HPI - HPI Summary HPI Summary: 27 year old male here with chief complaint of urinary frequency. Been going on for more than a week. No fevers or chills no burning with urination. NO Flank pain. Patient stopped drinking coffee because he thought that was the cause and that did not make any difference. He has been drinking a lot of water. He says the urine is yellow but not dark. He is not concerned about an STI. No perineal lesions or testicular pain. After he urinates he feels like he still needs to urinate feels like he has incomplete emptying. - History of Current Complaint Chief Complaint: UCGU Stated Complaint: FREQUENCY W/ URINATION, INSUFFICIENT AMOUNT Time Seen by Provider: 06/12/18 14:22 Pain Intensity: 2 - Allergies/Home Medications Allergies/Adverse Reactions: Allergies Allergy/AdvReac Type Severity Reaction Status Date / Time No Known Allergies Allergy Verified 06/12/18 14:05 PMH/Surg Hx/FS Hx/Imm Hx Previously Healthy: Yes - Surgical History Surgical History: None Surgery Procedure, Year, and Place: NONE PERTINENT - Family History Known Family History: Positive: Cardiac Disease, Hypertension, Diabetes - Social History Alcohol Use: Weekly Alcohol Amount: 1-2 drinks weekly Substance Use Type: None Smoking Status (MU): Never Smoked Tobacco Review of Systems All Other Systems Reviewed And Are Negative: Yes Constitutional: Positive: Negative Skin: Positive: Negative Eyes: Positive: Negative ENT: Positive: Negative Respiratory: Positive: Negative Cardiovascular: Positive: Negative Gastrointestinal: Positive: Negative Genitourinary: Positive: Frequency, Urgency Motor: Positive: Negative Neurovascular: Positive: Negative Musculoskeletal: Positive: Negative Neurological: Positive: Negative Psychological: Positive: Negative Is Patient Immunocompromised?: No Physical Exam Triage Information Reviewed: Yes Appearance: Well-Appearing, No Pain Distress, Well-Nourished Vital Signs: Initial Vital Signs Temp 98.8 F 06/12/18 14:01 Pulse 64 06/12/18 14:01 Resp 18 06/12/18 14:01 BP 134/65 06/12/18 14:01 Pulse Ox 98 06/12/18 14:01 Vital Signs Reviewed: Yes Eye Exam: Normal Eyes: Positive: Conjunctiva Clear Neck exam: Normal Neck: Positive: Supple Respiratory: Positive: Lungs clear, Normal breath sounds, No respiratory distress Cardiovascular: Positive: RRR Abdomen Description: Positive: Nontender, Soft, Other: - Palpation in the suprapubic area elicits the response I feel like I have to urinate. No pain or rebound.. Negative: CVA Tenderness (R), CVA Tenderness (L) Musculoskeletal Exam: Normal Musculoskeletal: Positive: Strength Intact, ROM Intact Neurological Exam: Normal Neurological: Positive: Alert, Muscle Tone Normal Psychological Exam: Normal Psychological: Positive: Normal Response To Family, Age Appropriate Behavior Skin Exam: Normal Complaint Male Course/Dx - Course Course Of Treatment: Patient's probably having some outlet obstruction urinary retention secondary to prostatitis. Patient denies concern of STI we'll treat with Bactrim 2 weeks and have him follow-up with his primary care doctor. We discussed that if he cannot urinate or if he gets bad pain or gets sicker he needs to go the emergency department right away. - Differential Dx/Diagnosis Provider Diagnoses: URINARY URGENCY Discharge - Sign-Out/Discharge Documenting (check all that apply): Patient Departure All imaging exams completed and their final reports reviewed: No Studies - Discharge Plan Condition: Stable Disposition: HOME Prescriptions: Sulfamethox/Trimethoprim DS* [Bactrim DS 800/160 TAB*] 1 tab PO BID #28 tab Patient Education Materials: Urinary Urgency and Frequency (DC), Prostatitis ( ED) Referrals: Amilcar Aguilar MD [Primary Care Provider] - Additional Instructions: FOLLOW UP WITH YOUR DOCTOR. GO TO THE EMERGENCY DEPARTMENT FOR ANY WORSENING OF YOUR CONDITION; YOU ARE UNABLE TO URINATE, PAIN, FEVER, YOU FEEL ILL OR QUESTIONS OR CONCERNS. - Billing Disposition and Condition Condition: STABLE Disposition: Home
== END 2018-06-12 15:12 | disposition home or self-care (01) ==
LOC: UCEAST 13:48
DX: R39.15 Urgency of urination (principal); R35.0 Frequency of micturition
CPT/HCPCS: 81003; 99212; G0463

== ENCOUNTER 2018-06-14 16:41 | Emergency (ER) | payer OTHER ==
[2018-06-14 18:21] LABS: ABS Basophils 0.1 10^3/ul (0-0.2); ABS Eosinophils 0.1 10^3/ul (0-0.6); ABS Lymphocytes 2.9 10^3/ul (1.0-4.8); ABS Monocytes 1.1 10^3/ul (0-0.8); ABS Neutrophils 8.9 10^3/ul (1.5-7.7); ABS Nucleated RBC 0 10^3/ul; Hematocrit 46 % (42-52); Hemoglobin 15.5 g/dl (14.0-18.0); Lymphocyte % 22.3 % (25-47); Mean Corpuscular HGB Conc 34 g/dl (31-36); Mean Corpuscular Hemoglobin 29 pg (27-31); Mean Corpuscular Volume 87 fL (80-94); Mean Platelet Volume 7.8 fL (7.4-10.4); Nucleated Red Blood Cells % 0.1; Platelet Count 300 10^3/ul (150-450); Red Blood Count 5.25 10^6/ul (4.00-5.40); Red Cell Distribution Width 13 % (10.5-15); White Blood Count 13.2 10^3/ul (3.5-10.8)
[2018-06-14 18:44] LABS: EGFR Non-African American 62.3 (>60)
--- NOTE | 2018-06-14 18:55 | ED ---
GI/ HPI - HPI Summary HPI Summary: 27-year-old male presents with urgency and frequency for the past 2 weeks. He feels like he has to go even though he just went. He states as soon as he starts to urinate it like his bladder muscle spasm. He states that his urethra seem to close up as he is not able to get his stream going. He denies any difficulties with erections. No abnormal penile discharge. No testicular pain. He denies any dysuria. No blood in his urine. No difficulties with bowel movements. No flank pain. No fevers. Denies any history of STDs. Has been with his for 5 years. He states is under a lot of stress at work. No other symptoms. - History of Current Complaint Chief Complaint: EDUrogenitalProblems Time Seen by Provider: 06/14/18 17:54 Stated Complaint: UNABLE TO URINATE Pain Intensity: 2 - Allergy/Home Medications Allergies/Adverse Reactions: Allergies Allergy/AdvReac Type Severity Reaction Status Date / Time No Known Allergies Allergy Verified 06/14/18 16:50 PMH/Surg Hx/FS Hx/Imm Hx Endocrine/Hematology History: Denies: Hx Diabetes Cardiovascular History: Denies: Hx Congestive Heart Failure, Other Cardiovascular Problems/Disorders - DENIES Respiratory History: Denies: Other Respiratory Problems/Disorders - DENIES History: Denies: Hx Renal Disease - Surgical History Surgery Procedure, Year, and Place: NONE PERTINENT Infectious Disease History: No Infectious Disease History: Denies: Traveled Outside the [place] in Last 30 Days - Family History Known Family History: Positive: Cardiac Disease, Hypertension, Diabetes - Social History Alcohol Use: Weekly Alcohol Amount: 1-2 drinks weekly Hx Substance Use: No Substance Use Type: Reports: None Hx Tobacco Use: No Smoking Status (MU): Never Smoked Tobacco Review of Systems Negative: Fever Negative: Chest Pain Negative: Shortness Of Breath Positive: frequency, urgency. Negative: flank pain All Other Systems Reviewed And Are Negative: Yes Physical Exam Triage Information Reviewed: Yes Vital Signs On Initial Exam: Initial Vitals Temp Pulse Resp BP Pulse Ox 97.9 F 98 18 160/98 97 06/14/18 16:43 06/14/18 16:43 06/14/18 16:43 06/14/18 16:43 06/14/18 16:43 Vital Signs Reviewed: Yes Appearance: Positive: Well-Appearing Skin: Positive: Warm, Dry Head/Face: Positive: Normal Head/Face Inspection Eyes: Positive: Normal, EOMI, LATONYA, Conjunctiva Clear ENT: Positive: Pharynx normal Respiratory/Lung Sounds: Positive: Clear to Auscultation, Breath Sounds Present Cardiovascular: Positive: Normal, RRR Abdomen Description: Positive: Nontender, Soft Bowel Sounds: Positive: Present Male Genital Exam: Positive: Normal Prostate - nontender Musculoskeletal: Positive: Normal Neurological: Positive: Normal Psychiatric: Positive: Normal Diagnostics - Vital Signs Vital Signs Temp Pulse Resp BP Pulse Ox 06/14/18 16:43 97.9 F 98 18 160/98 97 - Laboratory Lab Results: Lab Results 06/14/18 06/14/18 Range/Units 18:11 18:11 WBC 13.2 H (3.5-10.8) 10^3/ul RBC 5.25 (4.00-5.40) 10^6/ul Hgb 15.5 (14.0-18.0) g/dl Hct 46 (42-52) % MCV 87 (80-94) fL MCH 29 (27-31) pg MCHC 34 (31-36) g/dl RDW 13 (10.5-15) % Plt Count 300 (150-450) 10^3/ul MPV 7.8 (7.4-10.4) fL Neut % (Auto) 67.7 (38-83) % Lymph % (Auto) 22.3 L (25-47) % [place] % (Auto) 8.5 H (0-7) % Eos % (Auto) 1.0 (0-6) % Baso % (Auto) 0.5 (0-2) % Absolute Neuts (auto) 8.9 H (1.5-7.7) 10^3/ul Absolute Lymphs (auto) 2.9 (1.0-4.8) 10^3/ul Absolute Monos (auto) 1.1 H (0-0.8) 10^3/ul Absolute Eos (auto) 0.1 (0-0.6) 10^3/ul Absolute Basos (auto) 0.1 (0-0.2) 10^3/ul Absolute Nucleated RBC 0 10^3/ul Nucleated RBC % 0.1 Sodium 140 (135-145) mmol/L Potassium 4.1 (3.5-5.0) mmol/L Chloride 109 (101-111) mmol/L Carbon Dioxide 24 (22-32) mmol/L Anion Gap 7 (2-11) mmol/L BUN 16 (6-24) mg/dL Creatinine 1.37 H (0.67-1.17) mg/dL Est GFR ( Amer) 75.4 (>60) Est GFR (Non-Af Amer) 62.3 (>60) BUN/Creatinine Ratio 11.7 (8-20) Glucose 95 (70-100) mg/dL Calcium 9.2 (8.6-10.3) mg/dL Total Bilirubin 0.30 (0.2-1.0) mg/dL AST 29 (13-39) U/L ALT 51 (7-52) U/L Alkaline Phosphatase 62 (34-104) U/L C-Reactive Protein 4.13 (<8.01) mg/L Total Protein 7.7 (6.4-8.9) g/dL Albumin 4.5 (3.2-5.2) g/dL Globulin 3.2 (2-4) g/dL Albumin/Globulin Ratio 1.4 (1-3) Prostate Specific Ag Pending Result Diagrams: 06/14/18 18:11 06/14/18 18:11 Lab Statement: Any lab studies that have been ordered have been reviewed, and results considered in the medical decision making process. GIGU Course/Dx - Course Course Of Treatment: 27-year-old male presents with urgency and frequency for the past 2 weeks. He feels like he has to go even though he just went. He states as soon as he starts to urinate it like his bladder muscle spasm. He states that his urethra seem to close up as he is not able to get his stream going. He denies any difficulties with erections. No abnormal penile discharge. No testicular pain. He denies any dysuria. No blood in his urine. No difficulties with bowel movements. No flank pain. No fevers. Denies any history of STDs. Has been with his for 5 years. He states is under a lot of stress at work. No other symptoms. On exam nontender abdomen. appears anxious Prevoid had 15 mls. After void had 0 mls in bladder. Urine shows no infection. White blood cell count is elevated. crp normal. psa .3. normal prostate exam. discussed likely a stress related incontinence. will try short course of atarax for stress. told to follow up with urology. patient understand and agrees with plan. - Diagnoses Provider Diagnoses: Urgency of urination Discharge - Sign-Out/Discharge Documenting (check all that apply): Patient Departure - Discharge Plan Condition: Good Disposition: HOME Prescriptions: hydrOXYzine HCL TAB* [Atarax 25 MG TAB*] 25 mg PO TID PRN #15 tab PRN Reason: Anxiety Patient Education Materials: Urinary Urgency and Frequency (DC) Forms: *Work Release Referrals: Amilcar Aguilar MD [Primary Care Provider] - Naveen Donovan MD [Medical Doctor] - Additional Instructions: follow up with urology take hydroxyzine up to three times a day for anxiety finish bactrim script Return to ED if develop any fever or any new or worsening symptoms - Billing Disposition and Condition Condition: GOOD Disposition: Home
[2018-06-14 19:08] LABS: Urine Appearance Clear; Urine Blood Negative (Negative); Urine Color Yellow; Urine Ketones Negative (Negative); Urine Protein Negative (Negative); Urine Urobilinogen Negative (Negative)
[2018-06-14 19:48] VITALS: BP 165/95
== END 2018-06-14 19:47 | disposition home or self-care (01) ==
LOC: ED 16:41
DX: R39.15 Urgency of urination (principal); R35.0 Frequency of micturition
CPT/HCPCS: 36415; 80053; 81003; 84153; 85025; 86140; 87491; 87591; 99282